=== PATIENT | female | born 1955 | race Caucasian/White ===

== ENCOUNTER 2018-07-27 17:37 | Emergency (ER) | payer SELFPAY ==
[2018-07-27 18:36] LABS: Bilirubin Negative (Negative); Blood, Urine Negative (Negative); Clarity CLEAR (Clear); Glucose, Urine (Dipstick) Negative (Negative); Leukocyte Trace (Negative); Nitrite Negative (Negative); Protein, Urine (Dipstick) Negative (Neg-Trace); Specific Gravity, Urine 1.008 (1.002-1.036)
[2018-07-27 18:37] LABS: Bacteria/HPF None Seen HPF (None Seen); Hyaline Casts/LPF 0-3 HYALINE CAST LPF (0-3 Hyaline); Pathc Cast-AUWi Flag 0.13 (0-2.49); RBC/HPF 0-3 HPF (0-3); Squamous Epithelial None Seen HPF (0-3); WBC/HPF 0-3 HPF (0-3)
== END 2018-07-27 22:11 | disposition left against medical advice (07) ==
LOC: ERS 17:37
DX: Z53.21 Procedure and treatment not carried out due to patient leaving prior to being seen by health care provider (principal)
CPT/HCPCS: 81003; 81015

== ENCOUNTER 2020-03-07 11:34 | Outpatient (CLI) | payer MEDICARE ==
--- NOTE | 2020-03-07 12:22 | RAD ---
EXAM: XR Lumbar Spine 2 Or 3 View PROVIDED CLINICAL HISTORY: Chronic low back pain. Patient states pain is constant and worse over last 4 weeks. COMPARISON: None FINDINGS: There are 5 nonrib-bearing lumbar-type vertebral bodies. The vertebral body heights are within normal limits. Scattered minimal osteophytes are seen throughout the lower thoracic and involving the lumbar spine. There is loss of intervertebral disc height at the L4-5 level and to a greater extent t he L5-S1 level with endplate degenerative changes at the lumbosacral junction. Facet degenerative changes are also seen in the lower lumbar spine. No fracture or subluxation is seen. Vascular ossification are seen in the abdominal aorta with phleboliths overlying the pelvis. Surgical clips overlie the right upper quadrant. Small to moderate amount of retained fecal material is seen throughout the visualized colon. IMPRESSION: Degenerative changes in the lumbar spine greatest involving the lower lumbar spine. No fracture or finch bluxation is seen.
--- NOTE | 2020-03-07 12:23 | RAD ---
EXAM: XR Sacroiliac Joints >=3 View PROVIDED CLINICAL HISTORY: Sacroiliac joint dysfunction. COMPARISON: None FINDINGS: Degenerative changes are seen in the lower lumbar spine. Sacroiliac joints are symmetric in appearanc e bilaterally without evidence of erosions or sclerosis along the sacroiliac joints. No fracture is appreciated on provided images. Phleboliths overlie the pelvis. IMPRESSION: 1. No acute findings involving the sacroiliac joints based on radiographic evaluation. 2. Degenerative changes lower lumbar spine.
== END 2020-03-07 11:35 | disposition home or self-care (01) ==
LOC: BICRAD 11:34
PROVIDERS: ATTEND Family Medicine
DX: M53.3 Sacrococcygeal disorders, not elsewhere classified (principal); G89.29 Other chronic pain; M47.816 Spondylosis without myelopathy or radiculopathy, lumbar region
CPT/HCPCS: 72100; 72202

== ENCOUNTER 2020-10-10 00:51 | Observation (INO) | payer MEDICARE ==
[2020-10-10 02:38] LABS: #Eosinphils 0.1 thou/uL (0.0-0.7); #Lymphocytes 1.6 thou/uL (1.20-3.40); #Monocytes 0.4 thou/uL (0.11-0.59); #Neutrophils 4.1 thou/uL (1.40-6.50); %Basophils 0.2 % (0.0-1.0); %Eosinophils 1.6 % (0.0-10.0); %Lymphocytes 25.3 % (21.0-51.0); %Monocytes 6.3 % (0.0-10.0); %Neutrophils 66.5 % (42.0-75.0); Hemoglobin 13.9 g/dL (12.0-16.0); Mean Corpuscular HGB CONC 34.5 g/dL (32.0-36.0); Mean Corpuscular Hemoglobin 29.3 pg (27.0-31.0); Mean Corpuscular Volume 84.9 fL (78.0-98.0); Mean Platelet Volume 8.5 fL (7.4-10.4); Platelet Count 219 thou/uL (130-400); RBC Distribution Width 12.5 % (11.5-14.5); Red Blood Cell (RBC) Count 4.76 mill/uL (4.20-5.40); White Blood Cell (WBC) Count 6.2 thou/uL (4.8-10.8)
[2020-10-10 03:00] LABS: ALT (SGPT) 20 U/L (8-55); AST (SGOT) 19 U/L (5-34); Albumin 3.9 g/dL (3.4-4.8); Alkaline Phosphatase 94 U/L (40-110); Anion Gap 12 mmol/L (10-20); BUN (Urea Nitrogen) 14 mg/dL (9.8-20.1); Bilirubin, Total 0.3 mg/dL (0.2-1.2); Calc. Creatinine Clearance 0 mL/min (70-130); Calcium 9.7 mg/dL (7.8-10.44); Carbon Dioxide 22 mmol/L (23-31); Chloride 109 mmol/L (98-107); Globulin 3.3 g/dL (2.4-3.5); Glucose 124 mg/dL (80-115); Potassium 4.2 mmol/L (3.5-5.1); Protein, Total 7.2 g/dL (5.8-8.1); Sodium 139 mmol/L (136-145)
[2020-10-10] MEDS ORDERED: Nitroglycerin 2% Ointment 1 INCH/1 GM Packet ONE (03:25)
[2020-10-10] MEDS ORDERED: Lisinopril 20 MG TAB PO SCH ×2 (03:30→21:30)
[2020-10-10] MEDS ORDERED: Amlodipine 5 MG TAB PO SCH (03:45)
[2020-10-10] MEDS ORDERED: Aspirin 325 MG TAB ONE (04:00)
[2020-10-10 05:18] VITALS: BMI 35.9
[2020-10-10 05:57] LABS: Hemoglobin A1c 5.5 % (4.0-6.0)
[2020-10-10 06:18] LABS: SARS-CoV-2 NAA Rapid Test Not Detected (NotDetected)
[2020-10-10 06:18] LABS: Troponin I Less than 0.010 ng/mL (< 0.028)
[2020-10-10] MEDS: Aspirin 81 mg Enteric Coated Tablet PO SCH (07:54)
[2020-10-10] MEDS: Enoxaparin Sodium 40 MG/0.4 ML SYRINGE SC SCH (07:54)
[2020-10-10 08:41] LABS: Phosphorus 3.8 mg/dL (2.3-4.7)
[2020-10-10 08:45] LABS: Troponin I Less than 0.010 ng/mL (< 0.028)
[2020-10-10 09:06] LABS: Thyroid Stimulating Hormone 1.6975 uIU/mL (0.35-4.94)
[2020-10-10] MEDS: Acetaminophen 325 MG TAB PO PRN ×2 (12:50→20:46)
[2020-10-10] MEDS: Atorvastatin Calcium 40 MG TAB PO SCH ×2 (20:42→20:46)
[2020-10-10] MEDS ORDERED: hydrALAZINE 20 MG/ML VIAL SLOW IVP PRN (21:07)
[2020-10-10] MEDS: Lisinopril 20 MG TAB PO SCH (22:00)
[2020-10-11] MEDS: Acetaminophen 325 MG TAB PO PRN (04:25)
[2020-10-11 05:03] LABS: #Eosinphils 0.2 thou/uL (0.0-0.7); #Lymphocytes 2.2 thou/uL (1.20-3.40); #Monocytes 0.4 thou/uL (0.11-0.59); %Basophils 0.6 % (0.0-1.0); %Eosinophils 2.7 % (0.0-10.0); %Lymphocytes 37.8 % (21.0-51.0); %Monocytes 7.3 % (0.0-10.0); %Neutrophils 51.6 % (42.0-75.0); Hemoglobin 13.2 g/dL (12.0-16.0); Mean Corpuscular HGB CONC 33.1 g/dL (32.0-36.0); Mean Corpuscular Hemoglobin 28.1 pg (27.0-31.0); Mean Corpuscular Volume 84.9 fL (78.0-98.0); Mean Platelet Volume 8.3 fL (7.4-10.4); Platelet Count 225 thou/uL (130-400); RBC Distribution Width 12.5 % (11.5-14.5); Red Blood Cell (RBC) Count 4.69 mill/uL (4.20-5.40); White Blood Cell (WBC) Count 5.8 thou/uL (4.8-10.8)
[2020-10-11 05:27] LABS: Anion Gap 13 mmol/L (10-20); BUN (Urea Nitrogen) 12 mg/dL (9.8-20.1); Calc. Creatinine Clearance 132 mL/min (70-130); Calcium 9.5 mg/dL (7.8-10.44); Carbon Dioxide 26 mmol/L (23-31); Cardiac Risk 4.8 (Less than 4.5); Chloride 106 mmol/L (98-107); Cholesterol 262 mg/dl (< 200 Desired); Glucose 99 mg/dL (80-115); HDL Cholesterol 55 mg/dL (>60 Neg Risk); LDL Cholesterol, Calculated 147 mg/dL; Potassium 3.9 mmol/L (3.5-5.1); Sodium 141 mmol/L (136-145); Triglycerides 299 mg/dL (Less than 150)
[2020-10-11] MEDS ORDERED: Lorazepam 1 MG TAB PO PRN (08:17)
[2020-10-11] MEDS ORDERED: Amlodipine 5 MG TAB PO SCH ×2 (09:00)
[2020-10-11] MEDS ORDERED: Lisinopril 20 MG TAB PO SCH (09:00)
[2020-10-11] MEDS: Lisinopril 20 MG TAB PO SCH (09:11)
[2020-10-11] MEDS: Aspirin 81 mg Enteric Coated Tablet PO SCH (09:11)
[2020-10-11] MEDS: Enoxaparin Sodium 40 MG/0.4 ML SYRINGE SC SCH (09:12)
[2020-10-11 15:40] VITALS: BP 151/81; TEMP 97.9
== END 2020-10-11 16:39 | disposition home or self-care (01) ==
LOC: ERS 00:51 → 2SE 03:58
PROVIDERS: ADMIT Student in an Organized Health Care Education/Training Program; ATTEND Internal Medicine
DX: R20.2 Paresthesia of skin (principal); R51.9 Headache, unspecified; M54.2 Cervicalgia; M79.7 Fibromyalgia; I10 Essential (primary) hypertension; I69.354 Hemiplegia and hemiparesis following cerebral infarction affecting left non-dominant side; M25.512 Pain in left shoulder; I08.1 Rheumatic disorders of both mitral and tricuspid valves; E78.5 Hyperlipidemia, unspecified; E66.9 Obesity, unspecified; Z68.35 Body mass index [BMI] 35.0-35.9, adult; Z85.3 Personal history of malignant neoplasm of breast; Z79.82 Long term (current) use of aspirin; Z79.899 Other long term (current) drug therapy; Z88.5 Allergy status to narcotic agent; Z88.8 Allergy status to other drugs, medicaments and biological substances; Z20.822 Contact with and (suspected) exposure to COVID-19
CPT/HCPCS: 70450; 70551; 71045; 80048; 80061; 82607; 82746; 82962; 83036; 83735; 84100; 84484 ×2; 85025; 93005; 93306; 96372 ×2; 97116; 97139 ×5; 97535; 99285; G0378 ×3; U0002; U0005; 36415; 36416; 80053; 84443; J1650

== ENCOUNTER 2022-03-05 08:40 | Outpatient (CLI) | payer OTHER ==
[2022-03-05] MEDS ORDERED: Regadenoson 0.4 MG/5 ML SYRINGE ONE (13:54)
== END 2022-03-05 08:41 | disposition home or self-care (01) ==
LOC: NM 08:40
PROVIDERS: ATTEND Internal Medicine
DX: R07.2 Precordial pain (principal)
CPT/HCPCS: 78452; 93005; 93017; A9500; 93010; J2785

== ENCOUNTER 2022-04-21 09:25 | Emergency (ER) | payer OTHER ==
[2022-04-21 10:00] LABS: Bilirubin Negative (Negative); Blood, Urine Negative (Negative); Clarity Clear (Clear); Glucose, Urine (Dipstick) Normal (Negative); Ketone, Urine Negative (Negative); Leukocyte Negative Leu/uL (Negative); Nitrite Negative (Negative); Protein, Urine (Dipstick) Negative (Neg-Trace); Specific Gravity, Urine 1.003 (1.002-1.036); Urobilinogen Normal mg/dL (Less than 2); pH, Urine 6.5 (5.0-9.0)
[2022-04-21 11:18] LABS: #Eosinphils 0.1 thou/uL (0.0-0.7); #Lymphocytes 1.3 thou/uL (1.20-3.40); #Monocytes 0.4 thou/uL (0.11-0.59); #Neutrophils 4.8 thou/uL (1.40-6.50); %Basophils 0.3 % (0.0-1.0); %Eosinophils 1.6 % (0.0-10.0); %Lymphocytes 19.2 % (21.0-51.0); %Monocytes 5.3 % (0.0-10.0); %Neutrophils 73.7 % (42.0-75.0); Hemoglobin 13.6 g/dL (12.0-16.0); Mean Corpuscular HGB CONC 32.6 g/dL (32.0-36.0); Mean Corpuscular Hemoglobin 28.6 pg (27.0-31.0); Mean Corpuscular Volume 87.7 fl (78.0-98.0); Mean Platelet Volume 8.9 fL (7.4-10.4); Platelet Count 209 10x3/uL (130-400); RBC Distribution Width 12.4 % (11.5-14.5); Red Blood Cell (RBC) Count 4.75 mill/uL (4.20-5.40); White Blood Cell (WBC) Count 6.6 10x3/uL (4.8-10.8)
[2022-04-21 11:37] LABS: ALT (SGPT) 19 U/L (8-55); AST (SGOT) 15 U/L (5-34); Albumin 4.1 g/dL (3.4-4.8); Alkaline Phosphatase 82 U/L (40-110); Anion Gap 12 mmol/L (10-20); BUN (Urea Nitrogen) 11 mg/dL (9.8-20.1); Bilirubin, Total 0.5 mg/dL (0.2-1.2); Calc. Creatinine Clearance 0 mL/min (70-130); Calcium 9.4 mg/dL (7.8-10.44); Carbon Dioxide 26 mmol/L (23-31); Chloride 105 mmol/L (98-107); Estimated GFR 96; Glucose 100 mg/dL (80-115); Potassium 4.1 mmol/L (3.5-5.1); Protein, Total 7.1 g/dL (5.8-8.1); Sodium 139 mmol/L (136-145)
== END 2022-04-21 12:44 | disposition home or self-care (01) ==
LOC: ERS 09:25
DX: R39.15 Urgency of urination (principal); I10 Essential (primary) hypertension; Z79.899 Other long term (current) drug therapy
CPT/HCPCS: 36415; 80053; 81003; 85025; 87480; 87510; 87660; 99283

== ENCOUNTER 2023-07-12 18:11 | Emergency (ER) | payer OTHER ==
[2023-07-12] MEDS ORDERED: Ketorolac Tromethamine 30 MG (1 mL) VIAL ONE (18:57)
[2023-07-12 18:58] LABS: #Basophils 0.1 thou/uL (0.0-0.2); #Eosinphils 0.1 thou/uL (0.0-0.7); #Monocytes 0.5 thou/uL (0.11-0.59); #Neutrophils 5.2 thou/uL (1.40-6.50); %Basophils 0.6 % (0.0-1.0); %Eosinophils 1.1 % (0.0-10.0); %Lymphocytes 26.2 % (21.0-51.0); %Monocytes 5.7 % (0.0-10.0); Hematocrit 45.2 % (36.0-47.0); Hemoglobin 15.2 g/dL (12.0-16.0); Mean Corpuscular HGB CONC 33.6 g/dL (32.0-36.0); Mean Corpuscular Hemoglobin 27.7 pg (27.0-31.0); Mean Corpuscular Volume 82.5 fl (78.0-98.0); Platelet Count 308 10x3/uL (130-400); RBC Distribution Width 13.9 % (11.5-14.5); Red Blood Cell (RBC) Count 5.48 mill/uL (4.20-5.40); White Blood Cell (WBC) Count 7.9 10x3/uL (4.8-10.8)
[2023-07-12 19:17] LABS: ALT (SGPT) 29 U/L (8-55); AST (SGOT) 24 U/L (5-34); Albumin 4.6 g/dL (3.4-4.8); Alkaline Phosphatase 96 U/L (40-110); Anion Gap 16 mmol/L (10-20); BUN (Urea Nitrogen) 13 mg/dL (9.8-20.1); Bilirubin, Total 0.4 mg/dL (0.2-1.2); Calc. Creatinine Clearance 0 mL/min (70-130); Calcium 10.2 mg/dL (7.8-10.44); Carbon Dioxide 25 mmol/L (23-31); Chloride 105 mmol/L (98-107); Estimated GFR 86; Globulin 3.6 g/dL (2.4-3.5); Glucose 101 mg/dL (80-115); Protein, Total 8.2 g/dL (5.8-8.1); Sodium 142 mmol/L (136-145)
== END 2023-07-12 20:34 | disposition home or self-care (01) ==
LOC: ERS 18:11
DX: M25.562 Pain in left knee (principal); W54.1XXA Struck by dog, initial encounter; Y93.K1 Activity, walking an animal; I10 Essential (primary) hypertension
CPT/HCPCS: 80053; 83605; 85025; 87040; 96374; J1885

== ENCOUNTER 2023-12-08 17:07 | Emergency (ER) | payer OTHER ==
[2023-12-08] MEDS ORDERED: Ketorolac Tromethamine 30 MG (1 mL) VIAL ONE (17:43)
[2023-12-08] MEDS ORDERED: Metoclopramide HCl 10 MG (2 mL) VIAL ONE (17:43)
== END 2023-12-08 18:41 | disposition home or self-care (01) ==
LOC: ERS 17:07
DX: S16.1XXA Strain of muscle, fascia and tendon at neck level, initial encounter (principal); G44.209 Tension-type headache, unspecified, not intractable; M79.7 Fibromyalgia; I10 Essential (primary) hypertension
CPT/HCPCS: J1885; J2765; 96372; 99283

== ENCOUNTER 2024-02-07 17:31 | Emergency (ER) | payer OTHER ==
[~2024-02-07 17:31] MED LIST: Iopamidol-370 76% 500 ML MDV (1 ML CHARGE) ONE
[2024-02-07 19:36] LABS: #Basophils 0.05 10x3/uL (0.0-0.2); #Eosinphils Less than 0.03 10x3/uL (0.0-0.7); %Basophils 0.6 % (0.0-1.0); %Eosinophils 0.2 % (0.0-10.0); %Lymphocytes 13.9 % (21.0-51.0); %Monocytes 3.9 % (0.0-10.0); Hematocrit 43.7 % (36.0-47.0); Hemoglobin 14.6 g/dL (12.0-16.0); Mean Corpuscular HGB CONC 33.4 g/dL (32.0-36.0); Mean Corpuscular Hemoglobin 27.9 pg (27.0-31.0); Mean Corpuscular Volume 83.6 fL (78.0-98.0); Mean Platelet Volume 10.6 fL (7.4-10.4); Platelet Count 273 10x3/uL (130-400); RBC Distribution Width 13.6 % (11.5-14.5); Red Blood Cell (RBC) Count 5.23 mill/uL (4.20-5.40)
[2024-02-07 19:51] LABS: ALT (SGPT) 24 U/L (8-55); AST (SGOT) 19 U/L (5-34); Albumin 3.7 g/dL (3.4-4.8); Alkaline Phosphatase 89 U/L (40-110); Anion Gap 13 mmol/L (10-20); BUN (Urea Nitrogen) 15 mg/dL (9.8-20.1); Bilirubin, Total 0.3 mg/dL (0.2-1.2); Calc. Creatinine Clearance 0 mL/min (70-130); Calcium 9.9 mg/dL (7.8-10.44); Carbon Dioxide 26 mmol/L (23-31); Chloride 107 mmol/L (98-107); Estimated GFR 90; Globulin 4.2 g/dL (2.4-3.5); Glucose 138 mg/dL (80-115); Potassium 3.7 mmol/L (3.5-5.1); Protein, Total 7.9 g/dL (5.8-8.1); Sodium 142 mmol/L (136-145)
[2024-02-07 19:55] LABS: Troponin I Less than 0.010 ng/mL (< 0.028)
== END 2024-02-07 22:35 | disposition home or self-care (01) ==
LOC: ERS 17:31
DX: R51.9 Headache, unspecified (principal); R07.9 Chest pain, unspecified; I10 Essential (primary) hypertension
CPT/HCPCS: 70496; 70498; 71045; 80053; 84484; 85025; 93005; 99285; Q9967; 36415

== ENCOUNTER 2024-03-20 15:34 | Emergency (ER) | payer OTHER ==
[2024-03-20] MEDS ORDERED: Iopamidol-370 76% 500 ML MDV (1 ML CHARGE) ONE (15:42)
[2024-03-20] MEDS ORDERED: Ketorolac Tromethamine 30 MG (1 mL) VIAL ONE (16:15)
[2024-03-20 16:19] LABS: Bacteria/HPF None Seen HPF (None Seen); Bilirubin Negative (Negative); Blood, Urine Negative (Negative); CAUTI Indications for Culture Pelvic or flank pain; Clarity Clear (Clear); Glucose, Urine (Dipstick) Normal (Negative); Ketone, Urine Negative (Negative); Leukocyte 25 Leu/uL (Negative); Nitrite Negative (Negative); Protein, Urine (Dipstick) Negative (Neg-Trace); RBC/HPF 0-3 HPF (0-3); Squamous Epithelial 0-3 HPF (0-3); Urobilinogen Normal mg/dL (Less than 2); WBC/HPF 0-3 HPF (0-3); pH, Urine 6.5 (5.0-9.0)
[2024-03-20 16:24] LABS: #Basophils 0.05 10x3/uL (0.0-0.2); %Basophils 0.5 % (0.0-1.0); %Eosinophils 0.9 % (0.0-10.0); %Neutrophils 74.3 % (42.0-75.0); Hematocrit 41.2 % (36.0-47.0); Hemoglobin 13.9 g/dL (12.0-16.0); Mean Corpuscular HGB CONC 33.7 g/dL (32.0-36.0); Mean Corpuscular Hemoglobin 27.9 pg (27.0-31.0); Mean Corpuscular Volume 82.7 fL (78.0-98.0); Mean Platelet Volume 10.7 fL (7.4-10.4); Platelet Count 272 10x3/uL (130-400); RBC Distribution Width 13.8 % (11.5-14.5); Red Blood Cell (RBC) Count 4.98 mill/uL (4.20-5.40)
[2024-03-20 16:27] LABS: Specific Gravity, Urine 1.004 (1.002-1.036)
[2024-03-20 16:28] LABS: Urine Culture Reflex No No
[2024-03-20 16:58] LABS: ALT (SGPT) 27 U/L (8-55); AST (SGOT) 20 U/L (5-34); Albumin 3.7 g/dL (3.4-4.8); Alkaline Phosphatase 93 U/L (40-110); Anion Gap 16 mmol/L (10-20); BUN (Urea Nitrogen) 13 mg/dL (9.8-20.1); Bilirubin, Total 0.6 mg/dL (0.2-1.2); Calc. Creatinine Clearance 0 mL/min (70-130); Carbon Dioxide 22 mmol/L (23-31); Chloride 104 mmol/L (98-107); Estimated GFR 95; Globulin 3.8 g/dL (2.4-3.5); Glucose 97 mg/dL (80-115); Potassium 4.1 mmol/L (3.5-5.1); Protein, Total 7.5 g/dL (5.8-8.1); Sodium 138 mmol/L (136-145)
[2024-03-20] MEDS ORDERED: Amoxicillin/Potassium Clav 875 MG TAB ONE (18:08)
== END 2024-03-20 18:20 | disposition home or self-care (01) ==
LOC: ERS 15:34
DX: K57.32 Diverticulitis of large intestine without perforation or abscess without bleeding (principal); I10 Essential (primary) hypertension
CPT/HCPCS: 74177; 80053; 81001; 85025; 93005; J1885; Q9967; 96374

== ENCOUNTER 2025-01-18 06:30 | Day surgery (SDC) | payer OTHER ==
[2025-01-14 12:21] VITALS: BMI 32.4
[~2025-01-18 06:30] MED LIST changes: +EPINEPHrine 0.3 MG in Ophthalmic Irrigation Solution 500 ML IRR SCH; -Iopamidol-370 76% 500 ML MDV (1 ML CHARGE) ONE
[2025-01-18] MEDS ORDERED: Cyclopentolate 1% Opth Drop 2 ML BOT ONE (06:39)
[2025-01-18] MEDS ORDERED: PROPOFOL 20 ML ONE (07:29)
[2025-01-18] MEDS ORDERED: CEFAZOLIN 1 GM VIAL ONE (07:48)
[2025-01-18] MEDS ORDERED: Lidocaine 4% PF 5 ML AMP ONE (07:48)
[2025-01-18] MEDS ORDERED: Maxitrol 0.1% Opth Oint 3.5 GM TUBE ONE (07:48)
[2025-01-18] MEDS ORDERED: Lidocaine 1% PF 5 ML VIAL ONE (07:48)
== END 2025-01-18 09:25 | disposition home or self-care (01) ==
LOC: SDC 06:30
PROVIDERS: ATTEND Ophthalmology Retina Specialist
PROC: 08T53ZZ Resection of Left Vitreous, Percutaneous Approach (ICD-10-PCS; principal; 2025-01-18)
PROC: 08NF3ZZ Release Left Retina, Percutaneous Approach (ICD-10-PCS; 2025-01-18)
DX: H35.342 Macular cyst, hole, or pseudohole, left eye (principal); Z98.51 Tubal ligation status; Z90.49 Acquired absence of other specified parts of digestive tract; Z88.2 Allergy status to sulfonamides; Z88.8 Allergy status to other drugs, medicaments and biological substances; Z88.5 Allergy status to narcotic agent
CPT/HCPCS: 67025; 67042; J0166; J0690; J2250; J2704; J3010; J3301; J3490